=== PATIENT | male | born 1975 | race African-American/Black ===

== ENCOUNTER 2017-08-31 19:08 | Emergency (ER) | payer SELFPAY ==
[~2017-08-31] VITALS: Ht 193 cm; Wt 93.5 kg
[~2017-08-31 19:08] MED LIST: ACET-141 PO; ASPI81TA3 PO; ESOM20CA PO; RANI150T9 PO; SUCR1TAB56 PO
[2017-08-31 19:12] VITALS: Ht 193 cm; Wt 93.5 kg
== END 2017-08-31 21:00 | disposition left against medical advice (07) ==
LOC: E/R 19:08
DX: Z53.21 Procedure and treatment not carried out due to patient leaving prior to being seen by health care provider (principal)

== ENCOUNTER 2017-09-25 13:14 | Emergency (ER) | payer BC ==
[~2017-09-25] VITALS: Wt 90.6 kg
[2017-09-25] MEDS ORDERED: FAMOTIDINE 20 MG TAB PO STA (14:52)
[2017-09-25] MEDS ORDERED: LIDOCAINE/MYLANTA 40 ML BTL PO STA (14:52)
[2017-09-25] MEDS ORDERED: BELLADONNA/PHENOBARBITAL TAB PO STA (14:52)
[2017-09-25] MEDS ORDERED: ALBUTEROL 0.083% (NEB) 2.5 MG/3 ML AMP NEB STA (15:15)
[2017-09-25] MEDS ORDERED: IPRATROPIUM (NEB) 0.5 MG/2.5 ML AMP NEB STA (15:15)
--- NOTE | 2017-09-25 15:25 | RADRPT ---
PROCEDURE: XR Chest AP portable CLINICAL INDICATION: Chest pain TECHNIQUE: An AP portable radiograph of the chest was submitted. COMPARISON: 03/22/2017 FINDINGS: Support Hardware: None Cardiovascular: The cardiovascular silhouette appears unremarkable. Lung Connolly: The lung connolly appear clear with no nodule, alveolar infiltrate, or interstitial promi nence evident. Pleural Spaces: No pneumothorax or pleural effusion is identified. Osseous Structures: The osseous structures appear intact. Soft Tissues: The soft tissues appear unremarkable. IMPRESSION: Stable and unremarkable portable chest. Physician Renzo Date Time Electronically viewed and signed by Eloina Boykin Physician on 09/25/2017 15:25 RH/
[2017-09-25] MEDS ORDERED: ALBU18HF INHALATION (16:34)
[2017-09-25] MEDS ORDERED: OMEP20CA16 PO (16:34)
--- NOTE | 2017-09-25 16:50 | ERD ---
ER Documentation Chief Complaint Chief Complaint CHEST PAIN/EPIGASTRIC X 3 DAYS HPI 42-year-old male who presents with multiple complaints. He describes epigastric burning abdominal discomfort very similar to his GERD and dyspepsia. He also notes palpitations with a remote history of atrial flutter status post ablation. He is also describing some shortness of breath. And states this feels similar to his asthma and states that he ran out of his albuterol inhaler. He denies any chest pressure or exertional symptoms, no pleuritic pain. ROS All systems reviewed and are negative except as per history of present illness. Medications Home Meds Active Scripts Albuterol Sulfate* (Ventolin HFA*) 18 Gm Hfa.aer.ad, 2 PUFF INHALATION Q4H, #1 INHALER Prov:ARCELIA BRANHAM MD 09/25/17 Omeprazole* (Omeprazole*) 20 Mg Capsule., 20 MG PO DAILY, #30 Prov:ARCELIA BRANHAM MD 09/25/17 Ranitidine Hcl* (Zantac*) 150 Mg Tablet, 150 MG PO BID Y for EPIGASTRIC PAIN, # 30 TAB Prov:JORGE MERA 03/22/17 Sucralfate* (Carafate*) 1 Gm Tab, 1 GM PO QID for 30 Days, TAB Prov:JORGE MERA 03/22/17 Reported Medications Acetaminophen* (Acetaminophen*) 500 MG Extra Strength Tablet, 500 MG PO Q4H Y for PAIN AND OR ELEVATED TEMP, TAB 03/22/17 Aspirin* (Aspirin* Chew) 81 Mg Tab.chew, 81 MG PO DAILY, TAB.CHEW 03/22/17 Esomeprazole Mag Trihydrate (Nexium) 20 Mg Capsule., 20 MG PO DAILY, #30 CAP 08/25/16 Allergies Allergies: Coded Allergies: No Known Allergy (Unverified , 03/22/17) PATIENT BELIEVES HE HAD A REACTION TO METOPROLOL TO CAUSE HIS VISIT TODAY. PMhx/Soc History of Surgery: Yes (CARDIAC ABLATION) Anesthesia Reaction: No Hx Neurological Disorder: No Hx Respiratory Disorders: Yes (ASTHMA) Hx Cardiac Disorders: Yes (AFlutter) Hx Psychiatric Problems: No Hx Miscellaneous Medical Probl: Yes (GERD) Hx Alcohol Use: No Hx Substance Use: No Hx Tobacco Use: No Smoking Status: Never smoker FmHx Family History: No diabetes Physical Exam Vitals Vital Signs Date Time Temp Pulse Resp B/P Pulse Ox O2 Delivery O2 Flow Rate FiO2 09/25/17 16:10 64 17 98 21 09/25/17 15:39 60 17 114/81 100 Room Air 09/25/17 15:27 Simple Mask 10 09/25/17 13:17 98.7 78 18 141/77 99 Physical Exam General: Well developed, well nourished, no acute distress Head: Normocephalic, atraumatic. Eyes: Pupils equally reactive, EOM intact ENT: Moist mucous membranes Neck: Supple, no lymphadenopathy Respiratory: Lungs clear bilaterally, no distress Cardiovascular: RRR, no murmurs, rubs, or gallops Abdominal: Soft, non-tender, non-distended, no peritoneal signs, negative Roque sign : Deferred MSK: No edema, no unilateral swelling, 5/5 strength Neurologic: Alert and oriented, moving all extremities, normal speech, no focal weakness, no cerebellar signs Skin: No rash Psych: Normal mood Result Diagram: 09/25/17 1510 09/25/17 1510 Results 24 hrs Laboratory Tests Test 09/25/17 15:10 White Blood Count 5.710^3/ul Red Blood Count 5.3710^6/ul Hemoglobin 15.3g/dl Hematocrit 45.4% Mean Corpuscular Volume 84.5fl Mean Corpuscular Hemoglobin 28.5pg Mean Corpuscular Hemoglobin Concent 33.7g/dl Red Cell Distribution Width 13.3% Platelet Count 77693^3/UL Mean Platelet Volume 11.2fl Neutrophils % 55.2% Lymphocytes % 36.4% Monocytes % 7.4% Eosinophils % 0.2% Basophils % 0.4% Nucleated Red Blood Cells % 0.0/100WBC Neutrophils # 3.210^3/ul Lymphocytes # 2.110^3/ul Monocytes # 0.410^3/ul Eosinophils # 0.010^3/ul Basophils # 0.010^3/ul Nucleated Red Blood Cells # 0.010^3/ul Sodium Level 143mmol/L Potassium Level 4.2mmol/L Chloride Level 105mmol/L Carbon Dioxide Level 29mmol/L Anion Gap 13 Blood Urea Nitrogen 12mg/dl Creatinine 1.07mg/dl Glucose Level 91mg/dl Calcium Level 9.7mg/dl Troponin I < 0.012ng/ml Current Medications Medications (Trade) Dose Ordered Sig/Tonya Route PRN Reason Start Time Stop Time Status Last Admin Dose Admin Famotidine (Pepcid) 20 mg ONCE STAT PO 09/25/17 14:52 09/25/17 14:53 DC 09/25/17 15:41 Miscellaneous Medication (Gi Cocktail (2)) 40 ml ONCE STAT PO 09/25/17 14:52 09/25/17 14:53 DC 09/25/17 15:41 Belladonna/ Phenobarbital () 2 tab ONCE STAT PO 09/25/17 14:52 09/25/17 14:53 DC 09/25/17 15:40 Albuterol (Proventil 0.083% (Neb)) 2.5 mg ONCE STAT NEB 09/25/17 15:15 09/25/17 15:16 DC 09/25/17 16:10 Ipratropium [place] (Atrovent 0.02% (Neb)) 0.5 mg ONCE STAT NEB 09/25/17 15:15 09/25/17 15:16 DC 09/25/17 16:10 Procedures/MDM EKG, MONITORS, & DIAGNOSTIC IMAGING: EKG: I reviewed and interpreted a 12-lead EKG. Rhythm: Normal sinus rhythm Ectopy: None Intervals: No abnormalities ST segments: No elevations or depressions T waves: No contiguous inversions Chest x-ray: I reviewed and interpreted a 1 view of the chest Mediastinum: No enlargement Cardiac silhouette: No cardiomegaly Airspace: Clear lung connolly bilaterally without evidence of pneumothorax Bones: No evidence of fracture LAB INTERPRETATION: Negative Troponin MEDICAL DECISION MAKING: The patient presents with multiple complaints including dyspepsia, palpitations and shortness of breath. I believe his constellation of symptoms are multifactorial. The patient is describing shortness of breath related to his asthma but he has no wheezing, no hypoxia no cough. Chest x-ray is normal. The patient ran out of his albuterol inhaler and I will refill this. He is asking for breathing treatment but I do not believe he requires initiation of steroids. The patient is describing palpitations with a history of atrial flutter, EKG shows a normal sinus rhythm. He is not having chest pain and not having any signs or symptoms concerning for pulmonary embolism. The patient is also describing dyspepsia that is very consistent with his reflux. No signs or symptoms concerning for hepatobiliary obstruction or acute intra-abdominal process. ER COURSE: Patient was given a GI cocktail and breathing treatment. He states complete resolution of symptoms. He is resting comfortably without evidence of endorgan dysfunction. The patient's heart score is 0, no indication for cardiac evaluation at this point. Outpatient follow-up is appropriate. I kept the patient and/or family informed of laboratory and diagnostic imaging results throughout the emergency room course. DISPOSITION PLAN: We discussed follow up with the patient's primary care doctor within 24 to 48 hours as needed. We also discussed return to the emergency room for worsening symptoms or worsening condition. Outpatient referral: [None required] Discharge Medications: Albuterol, omeprazole Departure Diagnosis: Primary Impression: Dyspepsia Additional Impression: Palpitation Condition: Stable Patient Instructions: Palpitations Referrals: [facility], [facility] YOU HAVE RECEIVED A MEDICAL SCREENING EXAM AND THE RESULTS INDICATE THAT YOU DO NOT HAVE A CONDITION THAT REQUIRES URGENT TREATMENT IN THE EMERGENCY DEPARTMENT. FURTHER EVALUATION AND TREATMENT OF YOUR CONDITION CAN WAIT UNTIL YOU ARE SEEN IN YOUR DOCTORS OFFICE WITHIN THE NEXT 1-2 DAYS. IT IS YOUR RESPONSIBILITY TO MAKE AN APPOINTMENT FOR [facility]- CARE. IF YOU HAVE A PRIMARY DOCTOR --you should call your primary doctor and schedule an appointment IF YOU DO NOT HAVE A PRIMARY DOCTOR YOU CAN CALL OUR PHYSICIAN REFERRAL HOTLINE AT IF YOU CAN NOT AFFORD TO SEE A PHYSICIAN YOU CAN CHOSE FROM THE FOLLOWING [facility] [address] [facility]. [facility] [address] [facility]. [facility] [address] [facility]. [facility] [address] [facility]. [facility] [address] [facility]. [facility]. [address] [facility]. [facility] YOU HAVE RECEIVED A MEDICAL SCREENING EXAM AND THE RESULTS INDICATE THAT YOU DO NOT HAVE A CONDITION THAT REQUIRES URGENT TREATMENT IN THE EMERGENCY DEPARTMENT. FURTHER EVALUATION AND TREATMENT OF YOUR CONDITION CAN WAIT UNTIL YOU ARE SEEN IN YOUR DOCTORS OFFICE WITHIN THE NEXT 1-2 DAYS. IT IS YOUR RESPONSIBILITY TO MAKE AN APPOINTMENT FOR FOLOW-UP CARE. IF YOU HAVE A PRIMARY DOCTOR --you should call your primary doctor and schedule and appointment IF YOU DO NOT HAVE A PRIMARY DOCTOR YOU CAN CALL OUR PHYSICIAN REFERRAL HOTLINE AT . IF YOU CAN NOT AFFORD TO SEE A PHYSICIAN YOU CAN CHOSE FROM THE FOLLOWING [facility] INSTITUTIONS: [facility] [address] [place] [address] [facility] [address] [place] [address] [facility] [address] [place] [address] Additional Instructions: Call your primary care doctor TOMORROW for an appointment during the next 1 WEEK.Tell the medical office secretary that you were referred from this facility.See the doctor sooner or return here if your condition worsens before your appointment time. ARCELIA BRANHAM MD Sep 25, 2017 16:50
--- NOTE | 2017-09-25 16:50 | ERD ---
ER Documentation Chief Complaint Chief Complaint CHEST PAIN/EPIGASTRIC X 3 DAYS HPI 42-year-old male who presents with multiple complaints. He describes epigastric burning abdominal discomfort very similar to his GERD and dyspepsia. He also notes palpitations with a remote history of atrial flutter status post ablation. He is also describing some shortness of breath. And states this feels similar to his asthma and states that he ran out of his albuterol inhaler. He denies any chest pressure or exertional symptoms, no pleuritic pain. ROS All systems reviewed and are negative except as per history of present illness. Medications Home Meds Active Scripts Albuterol Sulfate* (Ventolin HFA*) 18 Gm Hfa.aer.ad, 2 PUFF INHALATION Q4H, #1 INHALER Prov:ARCELIA BRANHAM MD 09/25/17 Omeprazole* (Omeprazole*) 20 Mg Capsule., 20 MG PO DAILY, #30 Prov:ARCELIA BRANHAM MD 09/25/17 Ranitidine Hcl* (Zantac*) 150 Mg Tablet, 150 MG PO BID Y for EPIGASTRIC PAIN, # 30 TAB Prov:JORGE MERA 03/22/17 Sucralfate* (Carafate*) 1 Gm Tab, 1 GM PO QID for 30 Days, TAB Prov:JORGE MERA 03/22/17 Reported Medications Acetaminophen* (Acetaminophen*) 500 MG Extra Strength Tablet, 500 MG PO Q4H Y for PAIN AND OR ELEVATED TEMP, TAB 03/22/17 Aspirin* (Aspirin* Chew) 81 Mg Tab.chew, 81 MG PO DAILY, TAB.CHEW 03/22/17 Esomeprazole Mag Trihydrate (Nexium) 20 Mg Capsule., 20 MG PO DAILY, #30 CAP 08/25/16 Allergies Allergies: Coded Allergies: No Known Allergy (Unverified , 03/22/17) PATIENT BELIEVES HE HAD A REACTION TO METOPROLOL TO CAUSE HIS VISIT TODAY. PMhx/Soc History of Surgery: Yes (CARDIAC ABLATION) Anesthesia Reaction: No Hx Neurological Disorder: No Hx Respiratory Disorders: Yes (ASTHMA) Hx Cardiac Disorders: Yes (AFlutter) Hx Psychiatric Problems: No Hx Miscellaneous Medical Probl: Yes (GERD) Hx Alcohol Use: No Hx Substance Use: No Hx Tobacco Use: No Smoking Status: Never smoker FmHx Family History: No diabetes Physical Exam Vitals Vital Signs Date Time Temp Pulse Resp B/P Pulse Ox O2 Delivery O2 Flow Rate FiO2 09/25/17 16:10 64 17 98 21 09/25/17 15:39 60 17 114/81 100 Room Air 09/25/17 15:27 Simple Mask 10 09/25/17 13:17 98.7 78 18 141/77 99 Physical Exam General: Well developed, well nourished, no acute distress Head: Normocephalic, atraumatic. Eyes: Pupils equally reactive, EOM intact ENT: Moist mucous membranes Neck: Supple, no lymphadenopathy Respiratory: Lungs clear bilaterally, no distress Cardiovascular: RRR, no murmurs, rubs, or gallops Abdominal: Soft, non-tender, non-distended, no peritoneal signs, negative Roque sign : Deferred MSK: No edema, no unilateral swelling, 5/5 strength Neurologic: Alert and oriented, moving all extremities, normal speech, no focal weakness, no cerebellar signs Skin: No rash Psych: Normal mood Result Diagram: 09/25/17 1510 09/25/17 1510 Results 24 hrs Laboratory Tests Test 09/25/17 15:10 White Blood Count 5.710^3/ul Red Blood Count 5.3710^6/ul Hemoglobin 15.3g/dl Hematocrit 45.4% Mean Corpuscular Volume 84.5fl Mean Corpuscular Hemoglobin 28.5pg Mean Corpuscular Hemoglobin Concent 33.7g/dl Red Cell Distribution Width 13.3% Platelet Count 21165^3/UL Mean Platelet Volume 11.2fl Neutrophils % 55.2% Lymphocytes % 36.4% Monocytes % 7.4% Eosinophils % 0.2% Basophils % 0.4% Nucleated Red Blood Cells % 0.0/100WBC Neutrophils # 3.210^3/ul Lymphocytes # 2.110^3/ul Monocytes # 0.410^3/ul Eosinophils # 0.010^3/ul Basophils # 0.010^3/ul Nucleated Red Blood Cells # 0.010^3/ul Sodium Level 143mmol/L Potassium Level 4.2mmol/L Chloride Level 105mmol/L Carbon Dioxide Level 29mmol/L Anion Gap 13 Blood Urea Nitrogen 12mg/dl Creatinine 1.07mg/dl Glucose Level 91mg/dl Calcium Level 9.7mg/dl Troponin I < 0.012ng/ml Current Medications Medications (Trade) Dose Ordered Sig/Tonya Route PRN Reason Start Time Stop Time Status Last Admin Dose Admin Famotidine (Pepcid) 20 mg ONCE STAT PO 09/25/17 14:52 09/25/17 14:53 DC 09/25/17 15:41 Miscellaneous Medication (Gi Cocktail (2)) 40 ml ONCE STAT PO 09/25/17 14:52 09/25/17 14:53 DC 09/25/17 15:41 Belladonna/ Phenobarbital () 2 tab ONCE STAT PO 09/25/17 14:52 09/25/17 14:53 DC 09/25/17 15:40 Albuterol (Proventil 0.083% (Neb)) 2.5 mg ONCE STAT NEB 09/25/17 15:15 09/25/17 15:16 DC 09/25/17 16:10 Ipratropium [place] (Atrovent 0.02% (Neb)) 0.5 mg ONCE STAT NEB 09/25/17 15:15 09/25/17 15:16 DC 09/25/17 16:10 Procedures/MDM EKG, MONITORS, & DIAGNOSTIC IMAGING: EKG: I reviewed and interpreted a 12-lead EKG. Rhythm: Normal sinus rhythm Ectopy: None Intervals: No abnormalities ST segments: No elevations or depressions T waves: No contiguous inversions Chest x-ray: I reviewed and interpreted a 1 view of the chest Mediastinum: No enlargement Cardiac silhouette: No cardiomegaly Airspace: Clear lung connolly bilaterally without evidence of pneumothorax Bones: No evidence of fracture LAB INTERPRETATION: Negative Troponin MEDICAL DECISION MAKING: The patient presents with multiple complaints including dyspepsia, palpitations and shortness of breath. I believe his constellation of symptoms are multifactorial. The patient is describing shortness of breath related to his asthma but he has no wheezing, no hypoxia no cough. Chest x-ray is normal. The patient ran out of his albuterol inhaler and I will refill this. He is asking for breathing treatment but I do not believe he requires initiation of steroids. The patient is describing palpitations with a history of atrial flutter, EKG shows a normal sinus rhythm. He is not having chest pain and not having any signs or symptoms concerning for pulmonary embolism. The patient is also describing dyspepsia that is very consistent with his reflux. No signs or symptoms concerning for hepatobiliary obstruction or acute intra-abdominal process. ER COURSE: Patient was given a GI cocktail and breathing treatment. He states complete resolution of symptoms. He is resting comfortably without evidence of endorgan dysfunction. The patient's heart score is 0, no indication for cardiac evaluation at this point. Outpatient follow-up is appropriate. I kept the patient and/or family informed of laboratory and diagnostic imaging results throughout the emergency room course. DISPOSITION PLAN: We discussed follow up with the patient's primary care doctor within 24 to 48 hours as needed. We also discussed return to the emergency room for worsening symptoms or worsening condition. Outpatient referral: [None required] Discharge Medications: Albuterol, omeprazole Departure Diagnosis: Primary Impression: Dyspepsia Additional Impression: Palpitation Condition: Stable Patient Instructions: Palpitations Referrals: [facility] YOU HAVE RECEIVED A MEDICAL SCREENING EXAM AND THE RESULTS INDICATE THAT YOU DO NOT HAVE A CONDITION THAT REQUIRES URGENT TREATMENT IN THE EMERGENCY DEPARTMENT. FURTHER EVALUATION AND TREATMENT OF YOUR CONDITION CAN WAIT UNTIL YOU ARE SEEN IN YOUR DOCTORS OFFICE WITHIN THE NEXT 1-2 DAYS. IT IS YOUR RESPONSIBILITY TO MAKE AN APPOINTMENT FOR [facility]- CARE. IF YOU HAVE A PRIMARY DOCTOR --you should call your primary doctor and schedule an appointment IF YOU DO NOT HAVE A PRIMARY DOCTOR YOU CAN CALL OUR PHYSICIAN REFERRAL HOTLINE AT IF YOU CAN NOT AFFORD TO SEE A PHYSICIAN YOU CAN CHOSE FROM THE FOLLOWING [facility] [address] [facility]. [facility] [address] [facility] [address] [facility] [facility] [address] [facility]. [facility] [address] [facility] [facility]. [address] [facility]. [facility] YOU HAVE RECEIVED A MEDICAL SCREENING EXAM AND THE RESULTS INDICATE THAT YOU DO NOT HAVE A CONDITION THAT REQUIRES URGENT TREATMENT IN THE EMERGENCY DEPARTMENT. FURTHER EVALUATION AND TREATMENT OF YOUR CONDITION CAN WAIT UNTIL YOU ARE SEEN IN YOUR DOCTORS OFFICE WITHIN THE NEXT 1-2 DAYS. IT IS YOUR RESPONSIBILITY TO MAKE AN APPOINTMENT FOR FOLOW-UP CARE. IF YOU HAVE A PRIMARY DOCTOR --you should call your primary doctor and schedule and appointment IF YOU DO NOT HAVE A PRIMARY DOCTOR YOU CAN CALL OUR PHYSICIAN REFERRAL HOTLINE AT . IF YOU CAN NOT AFFORD TO SEE A PHYSICIAN YOU CAN CHOSE FROM THE FOLLOWING [facility] INSTITUTIONS: [facility] [address] [place] [address] [facility] [address] [place] [address] [facility] [address] [place] [address] Additional Instructions: Call your primary care doctor TOMORROW for an appointment during the next 1 WEEK.Tell the pocket secretary assembler that you were referred from this facility.See the doctor sooner or return here if your condition worsens before your appointment time. ARCELIA BRANHAM MD Sep 25, 2017 16:50
--- NOTE | 2017-09-25 16:50 | ERD ---
ER Documentation Chief Complaint Chief Complaint CHEST PAIN/EPIGASTRIC X 3 DAYS HPI 42-year-old male who presents with multiple complaints. He describes epigastric burning abdominal discomfort very similar to his GERD and dyspepsia. He also notes palpitations with a remote history of atrial flutter status post ablation. He is also describing some shortness of breath. And states this feels similar to his asthma and states that he ran out of his albuterol inhaler. He denies any chest pressure or exertional symptoms, no pleuritic pain. ROS All systems reviewed and are negative except as per history of present illness. Medications Home Meds Active Scripts Albuterol Sulfate* (Ventolin HFA*) 18 Gm Hfa.aer.ad, 2 PUFF INHALATION Q4H, #1 INHALER Prov:ARCELIA BRANHAM MD 09/25/17 Omeprazole* (Omeprazole*) 20 Mg Capsule., 20 MG PO DAILY, #30 Prov:ARCELIA BRANHAM MD 09/25/17 Ranitidine Hcl* (Zantac*) 150 Mg Tablet, 150 MG PO BID Y for EPIGASTRIC PAIN, # 30 TAB Prov:JORGE MERA 03/22/17 Sucralfate* (Carafate*) 1 Gm Tab, 1 GM PO QID for 30 Days, TAB Prov:JORGE MERA 03/22/17 Reported Medications Acetaminophen* (Acetaminophen*) 500 MG Extra Strength Tablet, 500 MG PO Q4H Y for PAIN AND OR ELEVATED TEMP, TAB 03/22/17 Aspirin* (Aspirin* Chew) 81 Mg Tab.chew, 81 MG PO DAILY, TAB.CHEW 03/22/17 Esomeprazole Mag Trihydrate (Nexium) 20 Mg Capsule., 20 MG PO DAILY, #30 CAP 08/25/16 Allergies Allergies: Coded Allergies: No Known Allergy (Unverified , 03/22/17) PATIENT BELIEVES HE HAD A REACTION TO METOPROLOL TO CAUSE HIS VISIT TODAY. PMhx/Soc History of Surgery: Yes (CARDIAC ABLATION) Anesthesia Reaction: No Hx Neurological Disorder: No Hx Respiratory Disorders: Yes (ASTHMA) Hx Cardiac Disorders: Yes (AFlutter) Hx Psychiatric Problems: No Hx Miscellaneous Medical Probl: Yes (GERD) Hx Alcohol Use: No Hx Substance Use: No Hx Tobacco Use: No Smoking Status: Never smoker FmHx Family History: No diabetes Physical Exam Vitals Vital Signs Date Time Temp Pulse Resp B/P Pulse Ox O2 Delivery O2 Flow Rate FiO2 09/25/17 16:10 64 17 98 21 09/25/17 15:39 60 17 114/81 100 Room Air 09/25/17 15:27 Simple Mask 10 09/25/17 13:17 98.7 78 18 141/77 99 Physical Exam General: Well developed, well nourished, no acute distress Head: Normocephalic, atraumatic. Eyes: Pupils equally reactive, EOM intact ENT: Moist mucous membranes Neck: Supple, no lymphadenopathy Respiratory: Lungs clear bilaterally, no distress Cardiovascular: RRR, no murmurs, rubs, or gallops Abdominal: Soft, non-tender, non-distended, no peritoneal signs, negative Roque sign : Deferred MSK: No edema, no unilateral swelling, 5/5 strength Neurologic: Alert and oriented, moving all extremities, normal speech, no focal weakness, no cerebellar signs Skin: No rash Psych: Normal mood Result Diagram: 09/25/17 1510 09/25/17 1510 Results 24 hrs Laboratory Tests Test 09/25/17 15:10 White Blood Count 5.710^3/ul Red Blood Count 5.3710^6/ul Hemoglobin 15.3g/dl Hematocrit 45.4% Mean Corpuscular Volume 84.5fl Mean Corpuscular Hemoglobin 28.5pg Mean Corpuscular Hemoglobin Concent 33.7g/dl Red Cell Distribution Width 13.3% Platelet Count 47083^3/UL Mean Platelet Volume 11.2fl Neutrophils % 55.2% Lymphocytes % 36.4% Monocytes % 7.4% Eosinophils % 0.2% Basophils % 0.4% Nucleated Red Blood Cells % 0.0/100WBC Neutrophils # 3.210^3/ul Lymphocytes # 2.110^3/ul Monocytes # 0.410^3/ul Eosinophils # 0.010^3/ul Basophils # 0.010^3/ul Nucleated Red Blood Cells # 0.010^3/ul Sodium Level 143mmol/L Potassium Level 4.2mmol/L Chloride Level 105mmol/L Carbon Dioxide Level 29mmol/L Anion Gap 13 Blood Urea Nitrogen 12mg/dl Creatinine 1.07mg/dl Glucose Level 91mg/dl Calcium Level 9.7mg/dl Troponin I < 0.012ng/ml Current Medications Medications (Trade) Dose Ordered Sig/Tonya Route PRN Reason Start Time Stop Time Status Last Admin Dose Admin Famotidine (Pepcid) 20 mg ONCE STAT PO 09/25/17 14:52 09/25/17 14:53 DC 09/25/17 15:41 Miscellaneous Medication (Gi Cocktail (2)) 40 ml ONCE STAT PO 09/25/17 14:52 09/25/17 14:53 DC 09/25/17 15:41 Belladonna/ Phenobarbital () 2 tab ONCE STAT PO 09/25/17 14:52 09/25/17 14:53 DC 09/25/17 15:40 Albuterol (Proventil 0.083% (Neb)) 2.5 mg ONCE STAT NEB 09/25/17 15:15 09/25/17 15:16 DC 09/25/17 16:10 Ipratropium G[place]inn (Atrovent 0.02% (Neb)) 0.5 mg ONCE STAT NEB 09/25/17 15:15 09/25/17 15:16 DC 09/25/17 16:10 Procedures/MDM EKG, MONITORS, & DIAGNOSTIC IMAGING: EKG: I reviewed and interpreted a 12-lead EKG. Rhythm: Normal sinus rhythm Ectopy: None Intervals: No abnormalities ST segments: No elevations or depressions T waves: No contiguous inversions Chest x-ray: I reviewed and interpreted a 1 view of the chest Mediastinum: No enlargement Cardiac silhouette: No cardiomegaly Airspace: Clear lung connolly bilaterally without evidence of pneumothorax Bones: No evidence of fracture LAB INTERPRETATION: Negative Troponin MEDICAL DECISION MAKING: The patient presents with multiple complaints including dyspepsia, palpitations and shortness of breath. I believe his constellation of symptoms are multifactorial. The patient is describing shortness of breath related to his asthma but he has no wheezing, no hypoxia no cough. Chest x-ray is normal. The patient ran out of his albuterol inhaler and I will refill this. He is asking for breathing treatment but I do not believe he requires initiation of steroids. The patient is describing palpitations with a history of atrial flutter, EKG shows a normal sinus rhythm. He is not having chest pain and not having any signs or symptoms concerning for pulmonary embolism. The patient is also describing dyspepsia that is very consistent with his reflux. No signs or symptoms concerning for hepatobiliary obstruction or acute intra-abdominal process. ER COURSE: Patient was given a GI cocktail and breathing treatment. He states complete resolution of symptoms. He is resting comfortably without evidence of endorgan dysfunction. The patient's heart score is 0, no indication for cardiac evaluation at this point. Outpatient follow-up is appropriate. I kept the patient and/or family informed of laboratory and diagnostic imaging results throughout the emergency room course. DISPOSITION PLAN: We discussed follow up with the patient's primary care doctor within 24 to 48 hours as needed. We also discussed return to the emergency room for worsening symptoms or worsening condition. Outpatient referral: [None required] Discharge Medications: Albuterol, omeprazole Departure Diagnosis: Primary Impression: Dyspepsia Additional Impression: Palpitation Condition: Stable Patient Instructions: Palpitations Referrals: [facility] YOU HAVE RECEIVED A MEDICAL SCREENING EXAM AND THE RESULTS INDICATE THAT YOU DO NOT HAVE A CONDITION THAT REQUIRES URGENT TREATMENT IN THE EMERGENCY DEPARTMENT. FURTHER EVALUATION AND TREATMENT OF YOUR CONDITION CAN WAIT UNTIL YOU ARE SEEN IN YOUR DOCTORS OFFICE WITHIN THE NEXT 1-2 DAYS. IT IS YOUR RESPONSIBILITY TO MAKE AN APPOINTMENT FOR [facility]. IF YOU HAVE A PRIMARY DOCTOR --you should call your primary doctor and schedule an appointment IF YOU DO NOT HAVE A PRIMARY DOCTOR YOU CAN CALL OUR PHYSICIAN REFERRAL HOTLINE AT IF YOU CAN NOT AFFORD TO SEE A PHYSICIAN YOU CAN CHOSE FROM THE FOLLOWING [facility] [address] [facility]. [facility] [address] [facility]. [facility] [address] [facility] [address] [facility]. [facility] [address] [facility] [facility]. [address] [facility]. [facility] YOU HAVE RECEIVED A MEDICAL SCREENING EXAM AND THE RESULTS INDICATE THAT YOU DO NOT HAVE A CONDITION THAT REQUIRES URGENT TREATMENT IN THE EMERGENCY DEPARTMENT. FURTHER EVALUATION AND TREATMENT OF YOUR CONDITION CAN WAIT UNTIL YOU ARE SEEN IN YOUR DOCTORS OFFICE WITHIN THE NEXT 1-2 DAYS. IT IS YOUR RESPONSIBILITY TO MAKE AN APPOINTMENT FOR FOLOW-UP CARE. IF YOU HAVE A PRIMARY DOCTOR --you should call your primary doctor and schedule and appointment IF YOU DO NOT HAVE A PRIMARY DOCTOR YOU CAN CALL OUR PHYSICIAN REFERRAL HOTLINE AT . IF YOU CAN NOT AFFORD TO SEE A PHYSICIAN YOU CAN CHOSE FROM THE FOLLOWING [facility]: [facility] [address] [place] [address] [facility] [address] [place] [address] [facility] [address] [place] [address] Additional Instructions: Call your primary care doctor TOMORROW for an appointment during the next 1 WEEK.Tell the pocket secretary assembler that you were referred from this facility.See the doctor sooner or return here if your condition worsens before your appointment time. ARCELIA BRANHAM MD Sep 25, 2017 16:50
[2017-09-25 17:17] VITALS: BP 118/67; PULSE 68; RESP 18; TEMP 98.2
== END 2017-09-25 17:19 | disposition home or self-care (01) ==
LOC: E/R 13:14
DX: R10.13 Epigastric pain (principal); R00.2 Palpitations; J45.909 Unspecified asthma, uncomplicated; Z79.82 Long term (current) use of aspirin
CPT/HCPCS: 36415; 71010; 80048; 84484; 85025; 93005; 94664; 99285; Z7610

== ENCOUNTER 2017-10-08 14:40 | Emergency (ER) | payer BC ==
[~2017-10-08] VITALS: Ht 175.3 cm; Wt 93.7 kg
[~2017-10-08 14:40] MED LIST changes: +ALBU18HF INHALATION; +OMEP20CA16 PO
[2017-10-08 14:51] VITALS: Ht 175.3 cm; Wt 93.7 kg
--- NOTE | 2017-10-08 15:22 | ERD ---
ER Documentation Chief Complaint Chief Complaint Complains of chest pain Hx of gerd HPI 42-year-old male states that he had a history of reflux disease. He states he ate something spicy last night. This morning, while walking through the mall with his daughter, he began having the onset of a burning type discomfort in his central chest. He denies any palpitations, shortness of breath, diaphoresis. He describes no nausea or vomiting. He states it feels like his reflux, but wanted to make sure was in his heart. ROS All systems reviewed and are negative except as per history of present illness. Medications Home Meds Active Scripts Albuterol Sulfate* (Ventolin HFA*) 18 Gm Hfa.aer.ad, 2 PUFF INHALATION Q4H, #1 INHALER Prov:ARCELIA BRANHAM MD 09/25/17 Omeprazole* (Omeprazole*) 20 Mg Capsule., 20 MG PO DAILY, #30 Prov:ARCELIA BRANHAM MD 09/25/17 Ranitidine Hcl* (Zantac*) 150 Mg Tablet, 150 MG PO BID Y for EPIGASTRIC PAIN, # 30 TAB Prov:JORGE MERA 03/22/17 Sucralfate* (Carafate*) 1 Gm Tab, 1 GM PO QID for 30 Days, TAB Prov:JORGE MERA 03/22/17 Reported Medications Acetaminophen* (Acetaminophen*) 500 MG Extra Strength Tablet, 500 MG PO Q4H Y for PAIN AND OR ELEVATED TEMP, TAB 03/22/17 Aspirin* (Aspirin* Chew) 81 Mg Tab.chew, 81 MG PO DAILY, TAB.CHEW 03/22/17 Esomeprazole Mag Trihydrate (Nexium) 20 Mg Capsule., 20 MG PO DAILY, #30 CAP 08/25/16 Allergies Allergies: Coded Allergies: No Known Allergy (Unverified , 03/22/17) PATIENT BELIEVES HE HAD A REACTION TO METOPROLOL TO CAUSE HIS VISIT TODAY. PMhx/Soc History of Surgery: Yes (CARDIAC ABLATION) Anesthesia Reaction: No Hx Neurological Disorder: No Hx Respiratory Disorders: Yes (ASTHMA) Hx Cardiac Disorders: Yes (AFlutter) Hx Psychiatric Problems: No Hx Miscellaneous Medical Probl: Yes (GERD) Hx Alcohol Use: No Hx Substance Use: No Hx Tobacco Use: No Smoking Status[facility] of early heart disease Physical Exam Vitals Vital Signs Date Time Temp Pulse Resp B/P Pulse Ox O2 Delivery O2 Flow Rate FiO2 10/08/17 14:51 98.6 72 20 146/82 100 Physical Exam GENERAL: The patient is well developed and appropriate for usual state of health in no apparent distress HEENT: Pupils equal, round, and reactive to light. EOMI. There is no scleral icterus. NECK: C-spine is soft and supple, there is no meningismus. There is no cervical lymphadenopathy. LUNGS: Clear to auscultation bilaterally. There are no rales, wheezes or rhonchi. HEART: Regular rate and rhythm, no murmurs, clicks, rubs or gallops. ABDOMEN: Soft, non-tender, non-distended. There are bowel sounds in all four quadrants. No rebound or guarding. EXTREMITIES: There is no peripheral cyanosis or edema. No focal swelling or erythema. NEURO: The patient moves all four extremities with 5/5 strength. Cranial nerves II - XII are intact. Normal gait. Alert and oriented SKIN: There is no apparent rash or petechiae. HEME/LYMPHATIC: There is no evidence of excessive bruising or lymphedema. PSYCHIATRIC: The patient does not appear anxious or depressed. Results 24 hrs Current Medications Medications (Trade) Dose Ordered Sig/Tonya Route PRN Reason Start Time Stop Time Status Last Admin Dose Admin Miscellaneous Medication (Gi Cocktail (2)) 40 ml ONCE ONCE PO 10/08/17 15:30 10/08/17 15:31 Procedures/MDM Patient was taken to a room, seen and evaluated. Comfort measures were initiated. Diagnostic tests were ordered and reviewed. 3 LEAD RHYTHM STRIP: Normal sinus rhythm without ectopy EK lead EKG reviewed by myself: Normal Sinus Rhythm Normal [place] and intervals No ST elevation, depression, or T wave inversion Impression: Normal EKG MEDICAL DECISION MAKIN-year-old male with a history of reflux presents the emergency department with symptoms consistent with his reflux. He is very little risk for ischemic disease with no significant cardiac risk factors and a normal EKG. At this time, patient is asking for no further workup including troponin tests and at this point I feel this is likely appropriate given his low risk presentation. I will be treating him for the likely GI because of his complaints. Departure Diagnosis: Primary Impression: Chest pain Additional Impression: GERD (gastroesophageal reflux disease) Condition: Stable Patient Instructions: Chest Pain, Uncertain Cause, Gerd (Adult) Additional Instructions: Please follow up with your doctor this week. Return immediately for any worsening symptoms or concerns ANA PHAM Oct 08, 2017 15:22
[2017-10-08] MEDS ORDERED: LIDOCAINE/MYLANTA 40 ML BTL PO ONE (15:30)
== END 2017-10-08 15:48 | disposition home or self-care (01) ==
LOC: E/R 14:40
DX: K21.9 Gastro-esophageal reflux disease without esophagitis (principal); J45.909 Unspecified asthma, uncomplicated; Z79.82 Long term (current) use of aspirin
CPT/HCPCS: 99283; Z7610; 93005

== ENCOUNTER 2018-06-09 16:22 | Emergency (ER) | END 2018-06-09 17:55 | disposition left against medical advice (07) ==

== ENCOUNTER 2018-06-10 03:19 | Observation (INO) | END 2018-06-10 12:29 | disposition home or self-care (01) ==

== ENCOUNTER 2019-02-11 23:19 | Emergency (ER) | payer SELFPAY ==
[~2019-02-11] VITALS: Ht 190.5 cm; Wt 97.0 kg
[~2019-02-11 23:19] MED LIST changes: +ASPI-903 PO; -ASPI81TA3 PO; -ESOM20CA PO; -OMEP20CA16 PO; -RANI150T9 PO; -SUCR1TAB56 PO
[2019-02-11 23:24] VITALS: BP 137/76; PULSE 92; RESP 18; Ht 190.5 cm; Wt 97.0 kg
== END 2019-02-12 02:06 | disposition left against medical advice (07) ==
LOC: FTE 23:19
DX: Z53.21 Procedure and treatment not carried out due to patient leaving prior to being seen by health care provider (principal)
CPT/HCPCS: 93005

== ENCOUNTER 2019-02-16 02:58 | Emergency (ER) | payer SELFPAY ==
[~2019-02-16] VITALS: Ht 193 cm; Wt 96.8 kg
[2019-02-16 03:20] VITALS: BP 149/86; PULSE 92; RESP 18; Ht 193 cm; Wt 96.8 kg
== END 2019-02-16 03:14 | disposition left against medical advice (07) ==
LOC: FTE 02:58
DX: Z53.21 Procedure and treatment not carried out due to patient leaving prior to being seen by health care provider (principal)

== ENCOUNTER 2019-03-21 20:10 | Emergency (ER) | payer MEDICAID ==
[~2019-03-21] VITALS: Ht 193 cm; Wt 99.8 kg
[2019-03-21 20:19] VITALS: Ht 193 cm; Wt 99.8 kg
[2019-03-21] MEDS ORDERED: KETOROLAC 15 MG INJ IV STA (22:06)
[2019-03-21] MEDS ORDERED: SOD CHLORIDE 0.9% 1,000 ML IV STA (22:06)
[2019-03-21] MEDS ORDERED: FAMOTIDINE 20 MG INJ IV STA (22:06)
--- NOTE | 2019-03-21 23:31 | ERD ---
ER Documentation Chief Complaint Chief Complaint RUQ PAIN X'S 2 1/2 WEEKS, RADIATES TO BACK HPI 43-year-old male who presents with right mid abdominal pain that he has had for about 2 weeks. It is intermittent sometimes radiates to his back. He has no history of kidney stones or gallstones. No nausea vomiting or diarrhea. No fe vers. He does have a history of GERD/gastritis. ROS All systems reviewed and are negative except as per history of present illness. Medications Home Meds Active Scripts Albuterol Sulfate* (Ventolin HFA*) 18 Gm Hfa.aer.ad, 2 PUFF INHALATION Q4H, #1 INHALER Prov:ARCELIA BRANHAM MD 09/25/17 Reported Medications Acetaminophen* (Acetaminophen*) 500 MG Extra Strength Tablet, 500 MG PO Q4H PRN for PAIN AND OR ELEVATED TEMP, TAB 03/22/17 Aspirin* (Aspirin* Chew) 81 Mg Tab.chew, 81 MG PO DAILY, TAB.CHEW 03/22/17 Allergies Allergies: Coded Allergies: amoxicillin (Unverified Adverse Reaction, Severe, 06/10/18) ibuprofen (Unverified Adverse Reaction, Severe, 06/10/18) PMhx/Soc History of Surgery: Yes (ablation) Anesthesia Reaction: No Hx Neurological Disorder: No Hx Respiratory Disorders: No Hx Cardiac Disorders: Yes (Afib) Hx Psychiatric Problems: No Hx Miscellaneous Medical Probl: Yes (gerd, hemorrhoid) Hx Alcohol Use: No Hx Substance Use: No Hx Tobacco Use: No Smoking Status: Never smoker FmHx Family History: No diabetes Physical Exam Vitals Vital Signs Date Temp Pulse Resp B/P (MAP) Pulse Ox O2 O2 Flow FiO2 Time Delivery Rate 03/21/19 97.8 85 18 145/66 100 20:19 (92) Physical Exam INITIAL VITAL SIGNS: Reviewed by me GENERAL: Awake, alert and oriented x 4, well appearing, nontoxic, speaking in full sentences. No acute distress HEAD: Atraumatic NECK: Supple. No masses. Full range of motion. No meningismus. No midline tenderness. RESPIRATORY: Clear to auscultation bilaterally. Symmetric chest wall rise. No wheezing or rales. No accessory muscle use. CV: Regular rate and rhythm. No murmurs, rubs, or gallops. ABDOMEN: Soft, non-distended. Nontender. Negative Seymour. Negative McBurneys point tenderness. No CVA tenderness bilaterally. No guarding. No rebound. : Deffered. Result Diagram: 03/21/19221503/21/192215 Results 24 hrs Laboratory Tests Test 03/21/19 22:16 White Blood Count 7.1 10^3/ul Red Blood Count 4.80 10^6/ul Hemoglobin 14.0 g/dl Hematocrit 41.6 % Mean Corpuscular Volume 86.7 fl Mean Corpuscular Hemoglobin 29.2 pg Mean Corpuscular Hemoglobin Concent 33.7 g/dl Red Cell Distribution Width 12.8 % Platelet Count 174 10^3/UL Mean Platelet Volume 10.6 fl Immature Granulocytes % 0.100 % Neutrophils % 42.1 % Lymphocytes % 46.6 % Monocytes % 9.1 % Eosinophils % 1.5 % Basophils % 0.6 % Nucleated Red Blood Cells % 0.0 /100WBC Immature Granulocytes # 0.010 10^3/ul Neutrophils # 3.0 10^3/ul Lymphocytes # 3.3 10^3/ul Monocytes # 0.7 10^3/ul Eosinophils # 0.1 10^3/ul Basophils # 0.0 10^3/ul Nucleated Red Blood Cells # 0.0 10^3/ul Urine Color COLORLESS Urine Clarity CLEAR Urine pH 8.0 Urine Specific [place] 1.009 Urine Ketones NEGATIVE mg/dL Urine Nitrite NEGATIVE mg/dL Urine Bilirubin NEGATIVE mg/dL Urine Urobilinogen NEGATIVE mg/dL Urine Leukocyte Esterase NEGATIVE Noah/ul Urine Microscopic RBC 3 /HPF Urine Microscopic WBC 0 /HPF Urine Hemoglobin 1+ mg/dL Urine Glucose NEGATIVE mg/dL Urine Total Protein NEGATIVE mg/dl Sodium Level 142 mmol/L Potassium Level 4.0 mmol/L Chloride Level 101 mmol/L Carbon Dioxide Level 31 mmol/L Anion Gap 10 Blood Urea Nitrogen 14 mg/dl Creatinine 0.98 mg/dl Est Glomerular Filtrat Rate mL/min > 60 mL/min Glucose Level 103 mg/dl Calcium Level 9.7 mg/dl Total Bilirubin 0.9 mg/dl Direct Bilirubin 0.00 mg/dl Indirect Bilirubin 0.9 mg/dl Aspartate Amino Transf (AST/SGOT) 41 IU/L Alanine Aminotransferase (ALT/SGPT) 45 IU/L Alkaline Phosphatase 59 IU/L Total Protein 7.5 g/dl Albumin 4.5 g/dl Globulin 3.00 g/dl Albumin/Globulin Ratio 1.50 Lipase 64 U/L Current Medications Medications Dose Sig/Tonya Start Time Status Last (Trade) Ordered Route PRN Stop Time Admin Dose Reason Admin Sodium 1,000 ml @ Q1H STAT 03/21/19 DC 03/21/19 Chloride 1,000 mls/hr IV 22:06 03/21/19 22:37 23:05 Famotidine 20 mg ONCE STAT 03/21/19 DC 03/21/19 (Pepcid Iv) IV 22:06 03/21/19 22:20 22:09 Ketorolac 15 mg ONCE STAT 03/21/19 Cancel Tromethamine IV 22:06 03/21/19 (Toradol) 22:07 Procedures/MDM The differential diagnosis includes but is not limited to appendicitis, cholelithiasis, cholecystitis, pancreatitis, hepatitis, gastritis, peptic ulcer disease, bowel obstruction, diverticulitis, renal disease including stones, to rsion, AAA, pyelonephritis, and others. Laboratory analysis shows no evidence of acute emergent abnormality. No evidence of significant leukocytosis suggesting systemic infection or severe anemia. No evidence of acute renal or liver failure, no evidence of severe alkalosis or acidosis. CT scan is nonacute. No clear etiology for his symptoms. Copies of labs and CT given so he can follow-up with primary care. Patient counseled regarding my diagnostic impression and care plan. Prior to discharge all questions answered. Pt agrees with treatment plan and understands strict return precautions. Pt is instructed to follow up with primary care provider within 24-48 hours. Precautionary instructions provided including instructions to return to the ER if not improving or for any worsening or changing symptoms or concerns. Departure Diagnosis: Primary Impression: Abdominal pain Condition: Stable Patient Instructions: Abdominal Pain Additional Instructions: Call your primary care doctor TOMORROW for an appointment during the next 1-2 days.See the doctor sooner or return here if your condition worsens before your appointment time. TIMOTEO ALTMAN PA-C March 21, 2019 23:31
[2019-03-21 23:40] VITALS: BP 124/75; PULSE 74; RESP 18
== END 2019-03-21 23:42 | disposition home or self-care (01) ==
LOC: FTE 20:10
DX: R10.11 Right upper quadrant pain (principal)
CPT/HCPCS: 36415; 74176; 80053; 81001; 83690; 85025; 96361; 96374; J7030; Z7502; Z7610; J1885

== ENCOUNTER → 2019-07-28 | Emergency (ER) | payer SELFPAY ==
[~2019-07-28] VITALS: Ht 193 cm; Wt 96.0 kg
[~2019-07-28] MED LIST changes: +ACET500C5 PO
[2019-07-28 07:13] VITALS: BP 129/77; PULSE 88; RESP 16; Ht 193 cm; Wt 96.0 kg
== END | disposition home or self-care (01) ==
LOC: FTE 07:10
DX: R31.21 Asymptomatic microscopic hematuria (principal)
CPT/HCPCS: 81001; 99283